=== PATIENT | male | born 1985 | race Caucasian/White ===

== ENCOUNTER 2018-04-06 12:03 | Emergency (ER) | payer OTHER ==
[~2018-04-06] VITALS: Ht 170.2 cm; Wt 113.6 kg
[2018-04-06] MEDS ORDERED: ZYCAM PO (12:26)
[2018-04-06] MEDS ORDERED: ACETAMINOPHEN 500 MG TABLET PO ONE (13:15)
[2018-04-06] MEDS ORDERED: DEXAMETHASONE SOD PHOS 4 MG/ML 5 ML VIAL IM ONE (13:45)
[2018-04-06] MEDS ORDERED: IBUPROFEN 600 MG TABLET PO ONE (13:45)
[2018-04-06 14:29] VITALS: BP 136/88
== END 2018-04-06 14:49 | disposition home or self-care (01) ==
LOC: EMS 12:04
DX: J06.9 Acute upper respiratory infection, unspecified (principal)
CPT/HCPCS: 71045; 87430; 96372; 99285; J1100